=== PATIENT | female | born 1985 | race Asian ===

== ENCOUNTER 2025-07-15 11:46 | Emergency (ER) | payer MEDICAID ==
[~2025-07-15] VITALS: Ht 165.1 cm; Wt 68.2 kg
[2025-07-15 11:46] VITALS: TEMP 97.7
[2025-07-15] MEDS ORDERED: FERR325T27 PO (11:49)
[2025-07-15 12:16] LABS: PLATELET COUNT (AUTO) 398 K/uL (150-450); RED BLOOD CELL COUNT(AUTO) 4.33 MIL/uL (4.00-5.20); RED CELL DISTRIBUTION WIDTH 20.0 % (11.5-14.5); WHITE BLOOD COUNT (AUTO) 5.8 K/uL (4.5-11.0)
[2025-07-15 12:25] LABS: CALCIUM, TOTAL 8.7 mg/dL (8.8-10.5); CREATININE 1.00 mg/dL (0.60-1.30); GLOMERULAR FILTR. RATE CALC > 60 mL/min (>60); GLUCOSE,RANDOM 79 mg/dL (70-110); SODIUM SERUM 138 mmol/L (136-145); UREA NITROGEN, BLOOD 12 mg/dL (7-18)
[2025-07-15 14:06] LABS: TROPONIN I-HIGH SENSITIVITY 11 ng/L (<51)
[2025-07-15] MEDS: SOD FERRIC GLUC COMPLX/SUCROSE 125 MG in SODIUM CHLORIDE 0.9% 100 ML IV ONE (14:29)
[2025-07-15] MEDS: SODIUM CHLORIDE 0.9% 1,000 ML IV ONE (14:29)
[2025-07-15 16:05] VITALS: BP 122/69; PULSE 80; RESP 18; O2SAT 99
== END 2025-07-15 16:07 | disposition home or self-care (01) ==
LOC: EMS 11:46
DX: D64.9 Anemia, unspecified (principal); R53.83 Other fatigue; R06.02 Shortness of breath; Z86.018 Personal history of other benign neoplasm
CPT/HCPCS: 99285; 96365; 71045; 80048; 83880; 84484; 84703; 85025; 86850; 86900; 86901; 36415; 93005; J2916; J7050